=== PATIENT | female | born 2000 | race Caucasian/White ===

== ENCOUNTER 2023-11-21 00:06 | Inpatient (IN) | payer OTHER ==
[~2023-11-21] VITALS: Ht 170.2 cm; Wt 108.9 kg
[~2023-11-21 00:06] MED LIST: CALCIUM CARBONATE 500 MG CHEW PO PRN; FLUOXETINE HCL40 MG PO; LACTATED RINGER'S 1,000 ML IV SCH; MAGNESIUM HYDROXIDE/AL HYDROX 30 ML CUP PO PRN; NORTRIPTYLINE H25 MG PO; PREDNISONE10 MG PO; PROMETHAZINE12.5 M1 PO; SUMATRIPTAN SUC50 MG PO; miSOPROStoL 25 MCG TAB PV SCH
[2023-11-21 00:43] LABS: HEMATOCRIT 35.6 % (35.0-50.0); HEMOGLOBIN 11.7 g/dL (12.0-18.0); MCHC 32.9 g/dl (30-36); RBC 4.34 M/ul (4.3-5.7); RDW 14.4 (10.5-15.0)
[2023-11-21 00:50] LABS: AMPHETAMINES, URINE NEGATIVE (NEGATIVE); BARBITURATES, URINE NEGATIVE (NEGATIVE); BENZODIAZEPINE, URINE NEGATIVE (NEGATIVE); BUPRENORPHINE, URINE NEGATIVE (NEGATIVE); CANNABINOID, URINE NEGATIVE (NEGATIVE); COCAINE, URINE NEGATIVE (NEGATIVE); ECSTASY, URINE NEGATIVE (NEGATIVE); FENTANYL, URINE NEGATIVE (NEGATIVE); METHADONE, URINE NEGATIVE (NEGATIVE); OPIATES, URINE NEGATIVE (NEGATIVE); OXYCODONE, URINE NEGATIVE (NEGATIVE); PHENCYCLIDINE, URINE NEGATIVE (NEGATIVE)
[2023-11-21 01:19] LABS: ABO B; ANTIBODY SCREEN NEGATIVE; RH POSITIVE
[2023-11-21 01:42] VITALS: BP 126/73
[2023-11-21] MEDS ORDERED: OXYTOCIN/DEXTROSE 5% 20 UNITS/100 ML BAG IV SCH (07:00)
[2023-11-21] MEDS ORDERED: ondansetron HCL 4 MG TAB PO PRN (08:30)
[2023-11-21] MEDS ORDERED: ROPIVACAINE 0.2% 200 ML BAG ONE (10:26)
[2023-11-21] MEDS ORDERED: LACTATED RINGER'S 500 ML IV PRN (11:15)
[2023-11-21] MEDS ORDERED: ePHEDrine sulfate 5 MG/ML SYRINGE IV PRN (11:15)
[2023-11-21] MEDS ORDERED: ROPIVACAINE 0.2% 200 ML BAG EPIDURAL SCH (11:15)
[2023-11-21] MEDS ORDERED: LACTATED RINGER'S 2,000 ML IV ONE (11:15)
--- NOTE | 2023-11-21 14:23 | PR ---
[facility] [address], [place] [address] Signed Progress Notes IP Datetime Report Generated by CPN: 11/21/2023 14:22 PROGRESS NOTES: [id number] Impression: Normal Progression of Labor Procedures: Intrauterine Pressure Catheter; Scalp Electrode; Sterile Vag Exam Plan: Continue Present Management Informed Consent Obtain: Vaginal Delivery VITAL SIGNS: [id number] Vital Signs: Reviewed; Within Normal Limits EXAM: [id number] Dilatation: 4.0 Effacement: 60 Station: -2 MEMBRANES: [id number] ROM Note: Tracing UCs inverted. Comments: S: Patient resting comfortably in bed. In room to adress variables in FHT. O: AFVSS [place]: q2-3 min A/P: No changes on cervical exam since AROM. IUPC and FSE placed. Will monitor MVUs in hopes of getting MVus above 200. Will recheck in 2 hours and sooner as needed. FETUS A: [id number] FHR Baseline: 140 Variability: Moderate 6-25bpm Accelerations: 10X10 Decelerations: None; Variable FHR Category: Category II Presentation: Vertex Comments on Fetus A: No evidence of metabolic acidosis FETUS B: [id number] Signing Physician: Guero Hoffman MD Copies: ~ *Electronically Signed* 11/21/23 1422 GUERO HOFFMAN MD PATIENT NAME: HEATHER MARTINEZ PROGRESS NOTE DATE OF : 98 PHYSICIAN: GUERO HOFFMAN MD RPT #: [id number] REPORT IS CONFIDENTIAL AND NOT TO BE RELEASED WITHOUT AUTHORIZATION
[2023-11-21] MEDS ORDERED: OXYTOCIN/0.9 % SODIUM CHLORIDE 500 ML IV SCH (15:15)
--- NOTE | 2023-11-21 16:09 | PR ---
[facility] [address] [place], [place] [address] Signed Progress Notes IP Datetime Report Generated by CPN: 11/21/2023 16:09 PROGRESS NOTES: [id number] Impression: Normal Progression of Labor Procedures: Intrauterine Pressure Catheter; Scalp Electrode; Sterile Vag Exam Plan: Continue Present Management Informed Consent Obtain: Vaginal Delivery VITAL SIGNS: [id number] Vital Signs: Reviewed; Within Normal Limits EXAM: [id number] Dilatation: 5.0 Effacement: 80 Station: -2 MEMBRANES: [id number] ROM Note: Tracing UCs inverted. Comments: S: Patient well. In room to assess variables and earlies with contractions. O: AFVSS [place]: Q 2-3 A/P: Patient well. Will continue with positional changes. Amnioinfusion of 500 cc of NS started also. Currently onlyon 2 vivian units of pitocin. Will continue to monitor. FETUS A: [id number] FHR Baseline: 140 Variability: Moderate 6-25bpm Accelerations: 10X10 Decelerations: Early; Variable FHR Category: Category II Presentation: Vertex Comments on Fetus A: No evidence of metabolic acidosis FETUS B: [id number] Signing Physician: Guero Hoffman MD Copies: ~ *Electronically Signed* 11/21/23 9276 GUERO HOFFMAN MD PATIENT NAME: HEATHER MARTINEZ PROGRESS NOTE DATE OF : 98 PHYSICIAN: GUERO HOFFMAN MD RPT #: [id number] REPORT IS CONFIDENTIAL AND NOT TO BE RELEASED WITHOUT AUTHORIZATION
[2023-11-21] MEDS ORDERED: SODIUM CHLORIDE 0.9% 500 ML XX SCH (16:30)
[2023-11-21] MEDS ORDERED: LIDOCAINE HCL 2% 5 ML SDV ONE (17:33)
[2023-11-21] MEDS ORDERED: dexmedeTOMIDine HCl 200 MCG/2 ML VIAL ONE (17:34)
--- NOTE | 2023-11-21 20:07 | PR ---
[facility] [address] [place], [place] [address] Signed Progress Notes IP Datetime Report Generated by CPN: 11/21/2023 20:07 PROGRESS NOTES: [id number] Impression: Normal Progression of Labor Procedures: Sterile Vag Exam Plan: Continue Present Management; Augmentation Informed Consent Obtain: Vaginal Delivery VITAL SIGNS: [id number] Vital Signs: Reviewed; Within Normal Limits EXAM: [id number] Dilatation: 6.0 Effacement: 90 Station: -1 Contractions: q 2 min MEMBRANES: [id number] ROM Note: Tracing UCs inverted. Comments: S: Patient resting comfortably in bed. No concerns or complaints. O: AFVSS A/P: Patient well. No cervical change, but noted progression of descent. Will continue with pitocin augmentation. Patient to sit in high fowlers position. Will recheck in 2 hours and sooner as needed. FETUS A: [id number] FHR Baseline: 140 Variability: Moderate 6-25bpm Accelerations: 10X10 Decelerations: Late; Variable FHR Category: Category II Presentation: Vertex Comments on Fetus A: No evidence of metabolic acidosis FETUS B: [id number] Signing Physician: Guero Hoffman MD Copies: ~ *Electronically Signed* 11/21/232006 GUERO HOFFMAN MD PATIENT NAME: HEATHER MARTINEZ PROGRESS NOTE DATE OF : 98 PHYSICIAN: GUERO HOFFMAN MD RPT #: [id number] REPORT IS CONFIDENTIAL AND NOT TO BE RELEASED WITHOUT AUTHORIZATION
--- NOTE | 2023-11-21 21:49 | PR ---
[facility] [address] [place], [place] [address] Signed Progress Notes IP Datetime Report Generated by CPN: 11/21/2023 21:49 PROGRESS NOTES: [id number] Impression: Normal Progression of Labor Procedures: Sterile Vag Exam Plan: Continue Present Management; Augmentation Informed Consent Obtain: Vaginal Delivery VITAL SIGNS: [id number] Vital Signs: Reviewed; Within Normal Limits EXAM: [id number] Dilatation: 7.0 Effacement: 90 Station: -1 Contractions: q 2 min MEMBRANES: [id number] ROM Note: Tracing UCs inverted. Comments: S: Patient resting comfortably in bed. No concerns or complaints. O: AFVSS A/P: Patient well. No cervical change, but noted progression of descent. Will continue with pitocin augmentation. Patient to sit in high fowlers position. Will recheck in 2 hours and sooner as needed. FETUS A: [id number] FHR Baseline: 140 Variability: Moderate 6-25bpm Accelerations: 10X10 Decelerations: Late; Variable FHR Category: Category II Presentation: Vertex Comments on Fetus A: No evidence of metabolic acidosis FETUS B: [id number] Signing Physician: Guero Hoffman MD Copies: ~ *Electronically Signed* 11/21/23 7238 GUERO HOFFMAN MD PATIENT NAME: HEATHER MARTINEZ PROGRESS NOTE DATE OF : 98 PHYSICIAN: GUERO HOFFMAN MD RPT #: [id number] REPORT IS CONFIDENTIAL AND NOT TO BE RELEASED WITHOUT AUTHORIZATION
[2023-11-21] MEDS ORDERED: ondansetron HCL 4 MG/2 ML VIAL IV PRN (23:30)
--- NOTE | 2023-11-21 23:32 | PR ---
[facility] [address] [facility] [place] [address] Signed Progress Notes IP Datetime Report Generated by CPN: 11/21/2023 23:32 PROGRESS NOTES: [id number] Impression: Normal Progression of Labor Procedures: Sterile Speculum Exam Plan: Continue Present Management Informed Consent Obtain: Vaginal Delivery VITAL SIGNS: [id number] Vital Signs: Reviewed; Within Normal Limits EXAM: [id number] Dilatation: 10.0 Effacement: 100 Station: 1 Contractions: q 1-2 MEMBRANES: [id number] ROM Note: Tracing UCs inverted. Comments: S: Patient well. Sitting up in bed with dry heaves. Right sided hip pain has increased. O: AFVSS A/P: Patient well. Dr. Bennett notified. Anticipate . Tachysytole. Will decrease pitocin from 14 vivian units to 10 vivian units. FETUS A: [id number] FHR Baseline: 140 Variability: Moderate 6-25bpm Accelerations: 10X10 Decelerations: None; Late; Variable FHR Category: Category II Presentation: Vertex Comments on Fetus A: No evidence of metabolic acidosis FETUS B: [id number] Signing Physician: Guero Hoffman MD Copies: ~ *Electronically Signed* 11/21/23 3014 GUERO HOFFMAN MD PATIENT NAME: HEATHER MARTINEZ PROGRESS NOTE DATE OF : 98 PHYSICIAN: GUERO HOFFMAN MD RPT #: [id number] REPORT IS CONFIDENTIAL AND NOT TO BE RELEASED WITHOUT AUTHORIZATION
[2023-11-22] MEDS ORDERED: BENZOCAINE 60 ML AEROSOL TOP PRN (00:45)
[2023-11-22] MEDS ORDERED: WITCH HAZEL/GLYCERIN 1 EA PAD TOP PRN (00:45)
[2023-11-22] MEDS ORDERED: ACETAMINOPHEN 325 MG TAB PO PRN (00:45)
[2023-11-22] MEDS ORDERED: miSOPROStoL 200 MCG TAB PO ONE (00:45)
[2023-11-22] MEDS ORDERED: CALCIUM CARBONATE 500 MG CHEW PO PRN (00:45)
[2023-11-22] MEDS ORDERED: MAGNESIUM HYDROXIDE 30 ML UDC PO PRN (00:45)
[2023-11-22] MEDS ORDERED: HYDROCORTISONE ACETATE 25 MG SUPP PR PRN (00:45)
[2023-11-22] MEDS ORDERED: OXYTOCIN/0.9 % SODIUM CHLORIDE 500 ML IV SCH (00:45)
[2023-11-22] MEDS ORDERED: MAGNESIUM HYDROXIDE/AL HYDROX 30 ML CUP PO PRN (00:45)
[2023-11-22] MEDS ORDERED: HYDROCODONE/ACETA 5/325 TAB PO PRN (00:45)
[2023-11-22] MEDS ORDERED: IBUPROFEN 600 MG TAB PO PRN (00:45)
[2023-11-22] MEDS ORDERED: OXYCODONE/APAP 5/325 TAB PO PRN (00:45)
[2023-11-22 05:25] LABS: HEMATOCRIT 31.3 % (35.0-50.0); HEMOGLOBIN 10.1 g/dL (12.0-18.0); MCH 26.7 (27-36); MCHC 32.3 g/dl (30-36); MCV 82.6 fl (81-99); RBC 3.79 M/ul (4.3-5.7); RDW 14.5 (10.5-15.0)
[2023-11-22] MEDS ORDERED: FERROUS SULFATE 325 MG TAB PO SCH (08:00)
[2023-11-22] MEDS ORDERED: SENNOSIDES/DOCUSATE 1 EA TAB PO SCH (09:00)
[2023-11-22] MEDS ORDERED: DEXAMETHASONE SOD PHOS 4 MG/ML VIAL IV ONE (16:15)
--- NOTE | 2023-11-23 04:22 | PR ---
[facility] [address] [place], [place] [address] Signed PP Progress Notes Datetime Report Generated by JOAO: 11/23/2023 04:21 SUBJECTIVE: [id number] Pain: Within Normal Limits Nausea/Vomiting: Denies Flatus: Yes Bowel Movement: No Vital Signs: [id number] Vital Signs: Reviewed; Within Normal Limits EXAM: Met Cardiovascular: Not Done Respiratory: Not Done Abdomen/Uterus: Normal Lochia: Normal Vulva/Perineum: Not Done Breasts: Not Done CVA Tenderness: Not Done Extremities: Abnormal Incision: Not Applicable Progress: Not Applicable Exam Comments: Improving LLE edema and foot numbness IMPRESSION/PLAN/PROCEDURES: [id number] Impression: Normal Progression Plan: Discharge Procedures: None Progress Notes: S: 23 yo s/p vaginal delivery. PPD#2. Doing well. Overnight has had improvement in ambulation with 1-2 person assist and is regaining sensation in her left foot. Denies INIGUEZ, CP, SOB, F/C, N/V, RUQ pain, changes in vision, vaginal discharge. Tolerating regular diet, voiding on own, pain controlled. Baby transferred yesterday to [facility] NICU secondary to respiratory requirements. O: AFVSS Abd: Fundus firm, non tender and below umbilicus. Musc: MATSON A/P: 23 yo s/p vaginal delivery. PPD #2. Doing well with improved ambulation with support. Discharge held yesterday due to ambulatory concerns. Likely discharge home today. Signing Physician: Abdias Pate MD *Electronically Signed* 11/23/23 042 ABDIAS PATE MD PATIENT NAME: HEATHER MARTINEZN PROGRESS NOTE DATE OF : 98 PHYSICIAN: ABDIAS PATE MD RPT #: [id number] REPORT IS CONFIDENTIAL AND NOT TO BE RELEASED WITHOUT AUTHORIZATION [facility] [address] [place], [place] [address] Signed Copies: ~ *Electronically Signed* 11/23/23420 ABDIAS PATE MD PATIENT NAME: HEATHER MARTINEZN PROGRESS NOTE DATE OF : 98 PHYSICIAN: ABDIAS PATE MD RPT #: [id number] REPORT IS CONFIDENTIAL AND NOT TO BE RELEASED WITHOUT AUTHORIZATION
== END 2023-11-23 09:56 | disposition home or self-care (01) | DRG 806 ==
LOC: FBC 00:06
PROVIDERS: ADMIT Obstetrics & Gynecology; ATTEND Obstetrics & Gynecology
PROC: 10E0XZZ Delivery of Products of Conception, External Approach (ICD-10-PCS; principal; 2023-11-21)
PROC: 0HQ9XZZ Repair Perineum Skin, External Approach (ICD-10-PCS; 2023-11-21)
PROC: 10907ZC Drainage of Amniotic Fluid, Therapeutic from Products of Conception, Via Natural or Artificial Opening (ICD-10-PCS; 2023-11-21)
PROC: 10H073Z Insertion of Monitoring Electrode into Products of Conception, Via Natural or Artificial Opening (ICD-10-PCS; 2023-11-21)
PROC: 4A1H7CZ Monitoring of Products of Conception, Cardiac Rate, Via Natural or Artificial Opening (ICD-10-PCS; 2023-11-21)
PROC: 10H07YZ Insertion of Other Device into Products of Conception, Via Natural or Artificial Opening (ICD-10-PCS; 2023-11-21)
DX: O77.0 Labor and delivery complicated by meconium in amniotic fluid (principal); O99.354 Diseases of the nervous system complicating childbirth; Z37.0 Single live birth; Z3A.39 39 weeks gestation of pregnancy; O70.0 First degree perineal laceration during delivery; O69.82X0 Labor and delivery complicated by other cord entanglement, without compression, not applicable or unspecified; G43.909 Migraine, unspecified, not intractable, without status migrainosus; O99.344 Other mental disorders complicating childbirth; F41.9 Anxiety disorder, unspecified; O99.892 Other specified diseases and conditions complicating childbirth; M79.7 Fibromyalgia; F32.A Depression, unspecified
CPT/HCPCS: 36415; 80307; 85027; 86850; 86900; 86901; A9270; J1100; J2001; J2590; J7030; J7121